=== PATIENT | female | born 1930 ===

== ENCOUNTER 2021-11-11 04:43 | Day surgery (SDC) | payer OTHER ==
[2021-11-10 11:03] VITALS: BMI 22.4
[2021-11-11] MEDS ORDERED: HEPARIN NA (PORCINE) 5,000 UNITS/ML 1ML VIAL ONE (09:26)
[2021-11-11] MEDS ORDERED: MIDAZOLAM HCL 2 MG/2 ML SINGLE DOSE VIAL ONE (10:30)
[2021-11-11] MEDS ORDERED: ONDANSETRON 4 MG/2 ML VIAL ONE (10:33)
[2021-11-11] MEDS ORDERED: LIDOCAINE HCL/PF 2% SDV 5ML VIAL ONE (10:33)
[2021-11-11] MEDS ORDERED: PROPOFOL 20 ML ONE (10:33)
[2021-11-11] MEDS ORDERED: ceFAZolin SODIUM 1 GM VIAL IVPB ONE (10:50)
[2021-11-11] MEDS ORDERED: ceFAZolin SODIUM 1 GM VIAL ONE (10:51)
[2021-11-11] MEDS ORDERED: LIDOCAINE HCL 1%, 10 MG/ML (50 mL VIAL) INF ONE (11:00)
[2021-11-11] MEDS ORDERED: ONDANSETRON 4 MG/2 ML VIAL IVPUSH PRN (11:47)
[2021-11-11] MEDS ORDERED: oxyCODONE HCL 5 MG TABLET PO PRN (11:47)
[2021-11-11] MEDS ORDERED: LACTATED RINGERS SOLUTION 1,000 ML IV SCH (12:00)
[2021-11-11 14:09] VITALS: BP 144/60; PULSE 89; TEMP 97.3
== END 2021-11-11 14:10 | disposition home or self-care (01) ==
LOC: JASU-SURG 04:43
PROVIDERS: ATTEND Surgery Vascular Surgery
PROC: 047L3Z1 Dilation of Left Femoral Artery using Drug-Coated Balloon, Percutaneous Approach (ICD-10-PCS; principal; 2021-11-11 11:00)
DX: I73.9 Peripheral vascular disease, unspecified (principal); I12.9 Hypertensive chronic kidney disease with stage 1 through stage 4 chronic kidney disease, or unspecified chronic kidney disease; E11.22 Type 2 diabetes mellitus with diabetic chronic kidney disease; N18.30 Chronic kidney disease, stage 3 unspecified; Z72.0 Tobacco use
CPT/HCPCS: 37225; C2623; 76000-TC-FY; 94760; C9803-CS; J1644; U0003; U0005